=== PATIENT | male | born 1985 | race Caucasian/White ===

== ENCOUNTER 2020-05-20 12:42 | Emergency (ER) | payer SELFPAY ==
[2020-05-20 12:47] VITALS: BP 170/82; PULSE 95; RESP 18; TEMP 36.5; O2SAT 100
--- NOTE | 2020-05-20 13:52 | ED.SKABFB ---
HPI - Skin/Abscess/Foreign Bdy General Chief complaint: Skin/Abscess/Foreign Body Stated complaint: skin problem Time Seen by Provider: 05/20/20 13:13 Source: patient Mode of arrival: ambulatory Limitations: no limitations History of Present Illness HPI narrative: Patient is a 35-year-old male who presents with generalized itchy rash intermittently x6 months. Patient is homeless and reports hitchhiking from the [facility] to here. He denies other medical history. He reports that he is unable to take showers frequently, and he is unable to afford medications. He reports being seen at other hospitals along the way for same. He denies all other complaints at this time. complaint: rash Related Data Allergies Allergy/AdvReac Type Severity Reaction Status Date / Time No Known Allergies Allergy Verified 05/20/20 12:52 Review of Systems Review of Systems: Narrative: CONSTITUTIONAL: Denies fever, chills, or sweats. EYES: Denies visual changes, redness, or discharge. ENT: Denies rhinorrhea, congestion, sore throat, or otalgia. CARDIOVASCULAR: Denies chest pain, palpitations, or edema. RESPIRATORY: Denies cough or dyspnea. GASTROINTESTINAL: Denies abdominal pain, nausea, vomiting, or diarrhea. GENITOURINARY: Denies dysuria or hematuria. SKIN: Generalized red itchy rash MUSCULOSKELETAL: Denies back pain, joint pain, or myalgia. NEUROLOGIC: Denies headache, numbness, dizziness, or weakness. PSYCHIATRIC: Denies anxiety or depression. Reports homelessness PMFSH Past Medical History Medical History (Updated 05/20/20 @ 14:01 by ZHEN Tao) No significant past medical history Surgical History Surgical History (Updated 05/20/20 @ 13:53 by ZHEN Tao) No significant past surgical history Family History Family History (Updated 05/20/20 @ 13:54 by ZHEN Tao) Other No significant family history Social History Social History (Updated 05/20/20 @ 13:54 by ZHEN Tao) Smoking status: Current some day smoker Tobacco type: cigarettes Alcohol intake: current Substance use: never Living arrangements: homeless Occupation/Education: unemployed Gender identity (if verbalized by the patient): Male Exam Narrative: Exam Narrative: GENERAL: Well-appearing, well-nourished, and in no acute distress. HEAD: Normocephalic, atraumatic. EYES:No redness or drainage. ENT: Mucous membranes pink and moist. CHEST: No respiratory distress. MUSCULOSKELETAL: No bony tenderness. EXTREMITIES: Normal range of motion. SKIN: Generalized rash with linear burrows more pronounced in umbilical/abdomen as well as fingers and axilla NEURO: No focal deficits. Alert and oriented x3. Gait steady. PSYCH: Normal affect. No signs of depression or anxiety. Course Vital Signs Vital signs: Vital Signs Temperature 36.5 C 05/20/20 12:47 Pulse Rate 95 05/20/20 12:47 Respiratory Rate 18 05/20/20 12:47 Blood Pressure 170/82 H 05/20/20 12:47 Pulse Oximetry 100 05/20/20 12:47 Temperature 36.5 C 05/20/20 12:47 Pulse Rate 95 05/20/20 12:47 Respiratory Rate 18 05/20/20 12:47 Blood Pressure 170/82 H 05/20/20 12:47 Pulse Oximetry 100 05/20/20 12:47 MDM - Skin/Abscess/Foreign Bdy MDM Narrative Medical decision making narrative: Discussed with patient treatment for scabies as well as need to wash all clothing and linens. Patient reports he has been diagnosed with scabies in the past, however, he is homeless and has having a hard time taking showers as well as cleaning close. Discussed again treatment needed. Patient refused listing of homeless shelters. Patient is stable for discharge home with outpatient follow-up as discussed. Differential Diagnosis Differential diagnosis: Likely urticaria, eczema, insect bites, impetigo and other (Scabies) Critical Care Time Critical Care Time Critical Care Time: No Discharge Plan Discharge Clinical Impression: Scabi
[2020-05-20 14:29] VITALS: BP 128/88; PULSE 80; RESP 20; O2SAT 99
== END 2020-05-20 14:31 | disposition home or self-care (01) ==
PROVIDERS: Emergency Provider Nurse Practitioner
DX: B86 Scabies (principal); F17.210 Nicotine dependence, cigarettes, uncomplicated; Z59.0 Homelessness
CPT/HCPCS: 99283

== ENCOUNTER 2020-09-27 09:40 | Emergency (ER) | payer SELFPAY ==
[2020-09-27 10:00] VITALS: BP 142/90; PULSE 87; RESP 16; TEMP 36.7; O2SAT 98
[2020-09-27 11:00] VITALS: BP 138/82; PULSE 77; RESP 13; O2SAT 99
--- NOTE | 2020-09-27 11:02 | ED.DIZZY ---
HPI - Dizziness General Chief Complaint: Dizziness Stated Complaint: DIZZY, NOSEBLEED Time Seen by Provider: 09/27/20 10:14 History of Present Illness HPI Narrative: 35 yo male presents to the ED with multiple complaints. He reports that he has 2 bumps on his head that have been there for several days. He also reports nasal congestion and occasional dizziness. When he awoke this morning his eyes were crusty and itchy. He also reports bilateral foot and leg pain. He also reports that while raking leaves yesterday his hand stopped working, then his other hand stopped working. He also noted left eyebrow twitching. He has not tried anything for his symptoms. Related Data Allergies Allergy/AdvReac Type Severity Reaction Status Date / Time No Known Allergies Allergy Verified 09/27/20 10:04 Review of Systems Review of Systems: All systems reviewed & are unremarkable except as noted in HPI and below Constitutional: Constitutional: Denies chills, Denies fever(s) and Denies weakness Eyes: Eyes: Denies change in vision ENT: Reports dizziness, Reports epistaxis (2 brief nose bleeds), Reports nasal congestion and Denies sore throat Cardiovascular: Cardiovascular: Denies chest pain Respiratory: Respiratory: Denies dyspnea Gastrointestinal: Gastrointestinal: Reports no additional gastrointestinal complaints Genitourinary: Genitourinary: Reports no additional male genitourinary complaints Musculoskeletal: Musculoskeletal: Denies back pain Neurologic: Reports dizziness, Denies syncope and Denies weakness [facility] Past Medical History Medical History (Updated 09/27/20 @ 12:32 by Kolby Waldrop MD) No significant past medical history Surgical History Surgical History (Updated 05/20/20 @ 13:53 by ZHEN Tao) No significant past surgical history Family History Family History (Updated 05/20/20 @ 13:54 by ZHEN Tao) Other No significant family history Social History Social History (Updated 05/20/20 @ 13:54 by ZHEN Tao) Smoking status: Current some day smoker Tobacco type: cigarettes Alcohol intake: current Substance use: never Gender identity (if verbalized by the patient): Male Exam Const: General: healthy appearing, no acute distress and alert Orientation/consciousness: patient oriented x3 HENMT: Ears: TM's normal bilaterally, EAC's normal and external ear abnormal Mouth: Yes dry mucous membranes Other: 2 small scabs to scalp Eyes: Conjunctivae: conjunctivae normal Pupils: Equal, round and reactive pupils present EOM: EOMs intact bilaterally Neck: Neck: normal visual inspection and no lymphadenopathy Resp: Effort & Inspection: normal respiratory effort Auscultation: clear to auscultation bilaterally Cardio: Rate: regular rate Rhythm: regular rhythm GI: Inspection: non-distended GI Palp: Yes Soft to palpation and No Tenderness to palpation present (GI) Skin: General skin exam: normal color Neuro: General: patient oriented x3, moves all extremities, no focal motor deficits and CN's II-XI intact bilaterally Cranial nerves: Yes Nystagmus not present Gait exam (Neuro): Normal gait present Extrem: General: normal to inspection and no edema Psych: Appearance: disheveled Affect: Anxious affect present Course Vital Signs Vital signs: Vital Signs Temperature 36.7 C 09/27/20 10:00 Pulse Rate 87 09/27/20 10:00 Respiratory Rate 16 09/27/20 10:00 Blood Pressure 142/90 H 09/27/20 10:00 Pulse Oximetry 98 09/27/20 10:00 Temperature 36.7 C 09/27/20 10:00 Pulse Rate 70 09/27/20 13:06 Respiratory Rate 18 09/27/20 13:06 Blood Pressure 143/84 H 09/27/20 13:06 Pulse Oximetry 99 09/27/20 11:45 MDM - Dizziness MDM Narrative Medical decision making narrative: He seems to have allergic rhinitis and anxiety issues. Exam benign. Labs reassuring. Differential Diagnosis Differential diagnosis: Likely other Medical Records
[2020-09-27 11:26] LABS: Basophils Percent Auto 0.4 % (0.2-1.2); Eosinophils Absolute Auto 0.1 K/mm3 (0-0.3); Eosinophils Percent Auto 0.5 % (0-4.4); Hematocrit 43.4 % (42.0-52.0); Hemoglobin 14.8 g/dL (14.0-18.0); Immature Granulocyte Absolute 0.03 K/mm3 (0.00-0.031); Immature Granulocyte Percent A 0.3 % (0-0.5); Lymphocytes Percent Auto 20.8 % (18.3-44.2); Mean Corpuscular HGB Conc 34.1 g/dl (32-36); Mean Corpuscular Hemoglobin 33.6 pg (26-34); Mean Corpuscular Volume 98.6 fl (80-100); Mean Platelet Volume 9.9 fl (7.4-10.4); Monocytes Absolute Auto 0.6 K/mm3 (0.1-0.6); Monocytes Percent Auto 5.6 % (2.6-8.5); Neutrophils Percent Auto 72.4 % (45.5-73.1); Platelet Count Result 238 k/mm3 (150-375); Red Cell Distribution Width 11.9 % (11.5-14.5); White Blood Count 11.1 K/mm3 (4.5-10.0)
[2020-09-27 11:34] LABS: Anion Gap 7 mmol/L (8-16); Blood Urea Nitrogen 16 mg/dL (9-20); Calcium 9.5 mg/dL (8.4-10.2); Carbon Dioxide 26 mmol/L (22-30); Chloride 104 mmol/L (98-107); Estimated CRCL calculation 92 ml/min; Estimated Glomerular Filt Rate > 60; Glucose 98 mg/dL (75-110); Potassium 4.3 mmol/L (3.4-5.0); Sodium 137 mmol/L (137-145)
[2020-09-27 11:35] LABS: Magnesium 1.7 mg/dL (1.6-2.3)
[2020-09-27] MEDS: OXYMETAZOLINE HCL 0.05% NAS 15 ML BTL (*BKC) 1 SPRAY NASAL (11:39)
[2020-09-27] MEDS: diphenhydrAMINE HCl CAP 25 MG CAPSULE 50 MG PO (11:39)
[2020-09-27 11:45] VITALS: BP 132/75; PULSE 72; RESP 19; O2SAT 99
[2020-09-27 13:06] VITALS: BP 143/84; PULSE 70; RESP 18
== END 2020-09-27 13:06 | disposition home or self-care (01) ==
PROVIDERS: Emergency Provider Emergency Medicine
DX: F41.9 Anxiety disorder, unspecified (principal); J31.0 Chronic rhinitis; F17.200 Nicotine dependence, unspecified, uncomplicated
CPT/HCPCS: 36415; 80048; 83735; 85025; 99283; A9270